=== PATIENT | female | born 1980 | race Caucasian/White ===

== ENCOUNTER 2023-12-15 06:29 | Inpatient (IN) | payer OTHER ==
[2023-12-15] MEDS ORDERED: Naloxone 0.4 MG/ML SDV IVPUSH PRN (07:09)
[2023-12-15] MEDS ORDERED: Albuterol 0.083% 2.5 MG/3 ML Neb Soln NEB PRN (07:09)
[2023-12-15] MEDS ORDERED: Metoclopramide 10 MG/2 ML SDV IVPUSH PRN (07:09)
[2023-12-15] MEDS ORDERED: Ondansetron 4 MG/2 ML SDV IVPUSH PRN ×2 (07:09→12:12)
[2023-12-15] MEDS ORDERED: fentaNYL 50 MCG/ML SDV IVPUSH PRN (07:09)
[2023-12-15] MEDS ORDERED: HYDROmorphone 1 MG/ML Syringe IVPUSH PRN (07:09)
[2023-12-15] MEDS ORDERED: droPERidol 5 MG/2 ML SDV IVPUSH PRN (07:09)
[2023-12-15] MEDS ORDERED: Morphine 2 MG/ML SYRINGE IVPUSH PRN (07:09)
[2023-12-15] MEDS: Lactated Ringers 1,000 ML IV SCH (07:10)
[2023-12-15 07:23] LABS: BASOPHILS ABSOLUTE AUTO 0.06 K/uL (0.00-0.20); BASOPHILS PERCENT AUTO 0.6 % (0.0-1.0); EOSINOPHILS PERCENT AUTO 1.9 % (0.0-6.0); HEMATOCRIT 38.9 % (37.0-47.0); HEMOGLOBIN 13.7 g/dL (12.0-16.0); IMMATURE GRAN ABSOLUTE AUTO 0.06 K/uL (0.00-0.05); IMMATURE GRAN PERCENT AUTO 0.6 % (0.0-0.4); LYMPHOCYTES ABSOLUTE AUTO 2.98 K/uL (1.00-4.80); LYMPHOCYTES PERCENT AUTO 28.3 % (24.0-44.0); MEAN CORPUSCULAR HGB CONC 35.2 g/dL (32.0-36.0); MEAN PLATELET VOLUME 9.9 fL (9.4-12.3); MONOCYTES ABSOLUTE AUTO 0.69 K/uL (0.00-0.80); MONOCYTES PERCENT AUTO 6.6 % (0.0-8.0); NEUTROPHILS ABSOLUTE AUTO 6.53 K/uL (1.80-7.70); PLATELET COUNT,PLT 305 K/uL (150-400); RED BLOOD CELL COUNT 4.42 M/uL (4.10-5.30); WHITE BLOOD CELL COUNT,WBC 10.52 K/uL (3.9-11.3)
[2023-12-15] MEDS ORDERED: Propofol 200 MG/20 ML SDV ONE (07:27)
[2023-12-15] MEDS ORDERED: fentaNYL 100 MCG/2 ML SDV ONE (07:27)
[2023-12-15] MEDS ORDERED: Water For Injection, Sterile 20 ML ONE (07:28)
[2023-12-15] MEDS ORDERED: dexmedeTOMIDine HCl 200 MCG/2 ML SDV ONE (07:28)
[2023-12-15] MEDS ORDERED: propofoL 50 ML ONE ×4 (07:32→10:46)
[2023-12-15] MEDS ORDERED: Rocuronium Bromide 50 MG/5 ML Syringe ONE ×2 (07:37→09:08)
[2023-12-15 07:39] LABS: CARBON DIOXIDE,CO2 28.3 mmol/L (21.0-32.0); CREATININE 0.7 mg/dL (0.6-1.0); EST CRCL DRUG DOSING (CG) 95.17 mL/min; POTASSIUM,K 3.9 mmol/L (3.5-5.1)
[2023-12-15] MEDS ORDERED: Methylene Blue 100 MG/10 ML SDV ONE (07:40)
[2023-12-15] MEDS ORDERED: Bupivacaine 0.5% 30 ML SDV ONE (07:40)
[2023-12-15] MEDS ORDERED: Ropivacaine 0.5% 5 MG/ML 30 ML SDV ONE (07:44)
[2023-12-15] MEDS ORDERED: Bupivacaine 0.25% 30 ML SDV ONE ×2 (07:44→07:47)
[2023-12-15] MEDS ORDERED: Ondansetron 4 MG/2 ML SDV ONE (08:16)
[2023-12-15] MEDS ORDERED: Magnesium Sulfate (4.06 MEQ/ML) 5 GM/10 ML SDV ONE (08:17)
[2023-12-15] MEDS ORDERED: ceFAZolin 2 GM Vial ONE (08:19)
[2023-12-15] MEDS ORDERED: Phenylephrine HCl 0.5 MG/5 ML AMP ONE (08:20)
[2023-12-15] MEDS ORDERED: Fluorescein 5 ML Vial ONE (09:13)
[2023-12-15] MEDS ORDERED: HYDROmorphone 2 MG/ML Syringe ONE (10:18)
[2023-12-15] MEDS ORDERED: Sugammadex Sodium 200 MG/2 ML VIAL IV ONE (10:45)
[2023-12-15] MEDS ORDERED: Ketorolac 30 MG/ML SDV ONE (10:45)
[2023-12-15] MEDS ORDERED: Promethazine 25 MG/ML SDV IM PRN (12:12)
[2023-12-15] MEDS ORDERED: Acetaminophen/oxyCODONE 325-5 MG Tab PO PRN (12:12)
[2023-12-15] MEDS ORDERED: Morphine 4 MG/ML Syringe IVPUSH PRN (12:12)
[2023-12-15] MEDS: Ketorolac 30 MG/ML SDV IVPUSH PRN (16:22)
[2023-12-15] MEDS: Ketorolac 30 MG/ML SDV IVPUSH ONE (16:22)
[2023-12-15] MEDS: Erythromycin Base 0.5% Ophth Oint 1 GM Tube EYEBOTH ONE (19:32)
[2023-12-15] MEDS: Tetracaine HCl/PF 0.5% 4 ML Bottle EYEBOTH SCH (20:02)
[2023-12-15] MEDS: Acetaminophen/oxyCODONE 325-5 MG Tab PO PRN (20:03)
[2023-12-15] MEDS: Docusate Sodium 100 MG Cap PO SCH (23:59)
[2023-12-16 06:12] LABS: BASOPHILS ABSOLUTE AUTO 0.05 K/uL (0.00-0.20); BASOPHILS PERCENT AUTO 0.3 % (0.0-1.0); EOSINOPHILS ABSOLUTE AUTO 0.02 K/uL (0.00-0.45); EOSINOPHILS PERCENT AUTO 0.1 % (0.0-6.0); HEMATOCRIT 32.7 % (37.0-47.0); HEMOGLOBIN 11.3 g/dL (12.0-16.0); IMMATURE GRAN ABSOLUTE AUTO 0.11 K/uL (0.00-0.05); IMMATURE GRAN PERCENT AUTO 0.6 % (0.0-0.4); LYMPHOCYTES ABSOLUTE AUTO 2.26 K/uL (1.00-4.80); LYMPHOCYTES PERCENT AUTO 11.9 % (24.0-44.0); MEAN CORPUSCULAR HEMOGLOBIN 30.6 pg (28.0-32.0); MEAN CORPUSCULAR HGB CONC 34.6 g/dL (32.0-36.0); MEAN CORPUSCULAR VOLUME 88.6 fL (83.0-99.0); MEAN PLATELET VOLUME 10.2 fL (9.4-12.3); MONOCYTES ABSOLUTE AUTO 1.27 K/uL (0.00-0.80); MONOCYTES PERCENT AUTO 6.7 % (0.0-8.0); NEUTROPHILS ABSOLUTE AUTO 15.36 K/uL (1.80-7.70); NEUTROPHILS PERCENT AUTO 80.4 % (41.0-71.0); PLATELET COUNT,PLT 351 K/uL (150-400); RED BLOOD CELL COUNT 3.69 M/uL (4.10-5.30); WHITE BLOOD CELL COUNT,WBC 19.07 K/uL (3.9-11.3)
[2023-12-16 06:40] LABS: CALCIUM 8.5 mg/dL (8.5-10.1); CREATININE 0.7 mg/dL (0.6-1.0); EST CRCL DRUG DOSING (CG) 95.17 mL/min; POTASSIUM,K 4.3 mmol/L (3.5-5.1)
[2023-12-16 07:00] LABS: CARBON DIOXIDE,CO2 27.5 mmol/L (21.0-32.0)
== END 2023-12-16 12:00 | disposition home or self-care (01) | DRG 742 ==
LOC: MW.SDS 06:29 → MW.OB 12:58 → MW.SDS 12:59 → OBSVTOIN 13:02 → MW.OB 13:02
PROVIDERS: ADMIT Obstetrics & Gynecology; ATTEND Obstetrics & Gynecology
PROC: 0UN94ZZ Release Uterus, Percutaneous Endoscopic Approach (ICD-10-PCS; 2023-12-15)
PROC: 0TJB8ZZ Inspection of Bladder, Via Natural or Artificial Opening Endoscopic (ICD-10-PCS; 2023-12-15)
PROC: 0UT9FZZ Resection of Uterus, Via Natural or Artificial Opening With Percutaneous Endoscopic Assistance (ICD-10-PCS; principal; 2023-12-15 08:00)
PROC: 0DNV4ZZ Release Mesentery, Percutaneous Endoscopic Approach (ICD-10-PCS; 2023-12-15 08:00)
DX: N92.0 Excessive and frequent menstruation with regular cycle (principal); Z68.41 Body mass index [BMI] 40.0-44.9, adult; K66.0 Peritoneal adhesions (postprocedural) (postinfection); E66.9 Obesity, unspecified; E11.9 Type 2 diabetes mellitus without complications; F32.A Depression, unspecified; I10 Essential (primary) hypertension; E78.00 Pure hypercholesterolemia, unspecified; G43.909 Migraine, unspecified, not intractable, without status migrainosus; Z79.4 Long term (current) use of insulin; Z88.2 Allergy status to sulfonamides; Z98.49 Cataract extraction status, unspecified eye; Z90.49 Acquired absence of other specified parts of digestive tract; Z98.51 Tubal ligation status; Z98.890 Other specified postprocedural states; Z79.899 Other long term (current) drug therapy; Z87.891 Personal history of nicotine dependence; N88.8 Other specified noninflammatory disorders of cervix uteri
CPT/HCPCS: 00944; 36415; 64488; 80048; 82947; 84703; 85025; 86850; 86900; 86901; A9270-GY; J0131; J0665; J0690; J1170; J1885; J2371; J2405; J2704; J2795; J3010; J3475; J3490; J7030; J7120; Q9968